=== PATIENT | male | born 1985 | race Hispanic/Latino ===

== ENCOUNTER 2019-06-25 00:42 | Emergency (ER) | payer OTHER ==
[~2019-06-25] VITALS: Ht 188 cm; Wt 134.6 kg
[2019-06-25] MEDS ORDERED: NAPR-837 PO (04:29)
[2019-06-25] MEDS ORDERED: NAPROXEN 250 MG TAB PO ONE (04:30)
[2019-06-25 05:00] VITALS: BP 142/68
--- NOTE | 2019-06-25 09:30 | REP ---
Clinical: Pain . Technique: AP, lateral, bilateral oblique views of the left elbow. Findings: No acute fracture or dislocation is appreciated. Joint spaces and surrounding soft tissues appear normal. Lateral view demonstrates normal positioning to the anterior and posterior fat pads without evidence for effusion/hemarthrosis. No subcutaneous emphysema or foreign body identified. Impression: Normal left elbow radiographs. Electronically Signed by Carl Andres MD 06/25/2019 09:21 A
== END 2019-06-25 05:04 | disposition home or self-care (01) ==
LOC: M ED 00:42
DX: M25.522 Pain in left elbow (principal); X50.0XXA Overexertion from strenuous movement or load, initial encounter; Y92.148 Other place in prison as the place of occurrence of the external cause; Y93.B3 Activity, free weights